=== PATIENT | male | born 1995 | race Hispanic/Latino ===

== ENCOUNTER 2016-07-22 07:43 | Emergency (ER) | payer OTHER ==
[~2016-07-22] VITALS: Ht 162.6 cm; Wt 70.8 kg
--- NOTE | 2016-07-22 08:08 | ED GI/GU/ABDOMINAL COMPLAINT ---
History of Present Illness General Chief Complaint: Abdominal Pain/Flank Pain Stated Complaint: ABD PAIN X 1 WEEK Source: patient, family (MOTHER) Exam Limitations: no limitations Vital Signs & Intake/Output Vital Signs & Intake/Output Vital Signs Date Time Temp Pulse Resp B/P B/P Pulse O2 O2 Flow FiO2 Mean Ox Delivery Rate 07/22 0746 96.5 54 18 112/70 99 Room Air Allergies Coded Allergies: No Known Allergies (07/22/16) Reconcile Medications No Known Home Medications Triage Note: PT TO ED WITH MOM FOR UPPER ABD PAIN SINCE LAST SUNDAY. SHARP IN NATURE. PT UNSURE OF LAST BM. DENIES URINARY SYMPTOMS. DENIES N/V/D. Triage Nurses Notes Reviewed? yes HPI: Patient presents for evaluation of a severe epigastric abdominal pain that began abruptly about 1 week ago. Patient states he episodes have been intermittent but don't change with eating. He denies any prior episodes of this type of pain. He denies any associated fever, cold symptoms, vomiting or diarrhea but felt nauseous today. He feels that the pain increased in intensity today prompting him to come to the emergency department. Patient denies any drug or alcohol use. Family history of gallbladder disease. Past History Travel History Traveled to [place] past 21 day No Medical History Any Pertinent Medical History? see below for history Neurological: NONE EENT: NONE Cardiovascular: NONE Respiratory: NONE Gastrointestinal: NONE Hepatic: NONE Renal: NONE Musculoskeletal: NONE Psychiatric: NONE Endocrine: NONE Blood Disorders: NONE Cancer(s): NONE BILINGUAL INTERPRETER/Reproductive: NONE Surgical History Surgical History: non-contributory Psychosocial History What is your primary language Tuvaluan Tobacco Use: Quit >30 days ago ETOH Use: denies use Illicit Drug Use: denies illicit drug use Family History Hx Contributory? No Review of Systems Review of Systems Constitutional: Reports: no symptoms. EENTM: Reports: no symptoms. Respiratory: Reports: no symptoms. Cardiovascular: Reports: no symptoms. GI: Reports: see HPI. Genitourinary: Reports: no symptoms. Musculoskeletal: Reports: no symptoms. Skin: Reports: no symptoms. Neurological/Psychological: Reports: no symptoms. Hematologic/Endocrine: Reports: no symptoms. Immunologic/Allergic: Reports: no symptoms. All Other Systems: Reviewed and Negative Physical Exam Physical Exam Gastrointestinal: SEE BELOW Comments: Gen.: Well-nourished, well-developed, no acute respiratory distress. Head: Normocephalic, atraumatic. Eyes: Normal inspection bilaterally Ears: Normal inspection bilaterally Nose: Normal inspection Throat/mouth : Moist mucosa Neck: Supple, full range of motion, no goiter Heart: Regular rate and rhythm, no murmurs rubs or gallops Lungs: Clear to auscultation bilaterally with normal air entry Chest: Nontender Back: Normal range of motion Abdomen: Soft, epigastric tenderness with brief voluntary guarding but no rebound, nondistended, normal bowel sounds Extremities: Normal range of motion grossly, equal radial pulses, no cyanosis clubbing or edema Neurologic: Cranial nerves grossly intact, speech is clear Skin: warm and dry Psychiatric: Calm, cooperative, no apparent delusions or hallucinations Core Measures ACS in differential dx? No Severe Sepsis Present: No Septic Shock Present: No Progress Differential Diagnosis: gastritis, pancreatitis, peptic ulcer, PUD/GERD Plan of Care: Orders Procedure Date/time Status URINALYSIS 07/23 807 Complete LIPASE 07/23 807 Complete COMPREHENSIVE METABOLIC PANEL 07/23 807 Complete CBC WITHOUT DIFFERENTIAL 07/23 807 Complete Laboratory Tests 07/22/16 0820: Urine Color YEL, Urine Clarity CLEAR, Urine pH 6.0, Ur Specific [place] 1.025, Urine Protein NEG, Urine Ketones NEG, Urine Nitrite NEG, Urine Bilirubin NEG, Urine Urobilinogen 0.2, Ur Leukocyte Esterase NEG, Ur Microscopic EXAM NOT REQUIRED, Urine Hemoglobin NEG, Urine Glucose NEG 07/22/16 0815: Anion Gap 10, Estimated GFR > 60, BUN/Creatinine Ratio 19.0, Glucose 101 H, Calcium 9.2, Total Bilirubin 0.5, AST 27, ALT 38, Alkaline Phosphatase 57, Total Protein 7.1, Albumin 4.1, Globulin 3.0, Albumin/Globulin Ratio 1.4, Lipase 88, CBC w Diff NO MAN DIFF REQ, RBC 5.05, MCV 82.5, MCH 27.3, RDW 13.4, MPV 8.0, Gran % 50.6, Lymphocytes % 38.0, Monocytes % 10.0 H, Eosinophils % 1.1, Basophils % 0.3, Absolute Granulocytes 2.3, Absolute Lymphocytes 1.8, Absolute Monocytes 0.5, Absolute Eosinophils 0.1, Absolute Basophils 0, PUBS MCHC 33.1 Initial ED EKG: none Comments: 07/22/2016 9:09:59 AM patient is feeling better and looks more comfortable clinically. Abdominal examination has improved. He feels ready to go home. Appendicitis-the patient did not have migration of the pain to the right lower quadrant, tenderness over McBurney's point, Rovsing sign, white cell blood count was not elevated, and the diagnostic imaging studies did not confirm this Peritonitis-the patient had no rebound or guarding, did not have a rigid abdomen , the white blood cell count was not elevated Cholecystitis-the patient had no Rubio's sign on exam, white blood cell count was normal, and there is no obstructive pattern on laboratory testing the patient's physical examination was inconsistent with this Pancreatitis-the lipase was normal, patient had no history of alcohol abuse or hypertriglyceridemia GI bleed-patient had no history of prior GI bleed, patient denied consistent use of NSAIDs, the patient is not taking anticoagulants such as Coumadin, the patient denied melena. AAA-the patient has a paucity of significant risk factors for vascular disease, there is no pulsatile abdominal mass, lower extremity pulses were equal Hernia-there were no apparent abdominal hernias on physical examination, the patient denied any unusual bulges or masses Ischemic bowel-the patient has a paucity of risk factors for vascular disease or thrombosis, physical examination did not reveal pain out of proportion to physical exam findings Bowel obstruction-patient's abdomen was not significantly distended or hypertympanitic, patient had good bowel sounds, patient was having bowel movements and passing flatus. Departure Departure Disposition: HOME OR SELF CARE Condition: Stable Clinical Impression Primary Impression: Epigastric abdominal pain Referrals: PATIENT HAS NO PRIMARY CARE DR (PCP/Family) LORENA SANABRIA MD Additional Instructions: Chaves diet (avoid acidic or spicy foods as discussed). Zantac as prescribed. Take Levsin as needed for abdominal pain. Follow-up with your primary care doctor or the GI specialist listed this week for reevaluation. Return if any concerns or sudden worsening. Thank you for choosing the [facility] for your care. It was a pleasure to serve you today. Nazario Taylor M.D. [facility] Departure Forms: Customer Survey General Discharge Information Prescriptions: Current Visit Scripts Ranitidine HCl (Zantac) 1 TAB PO QPM #15 TAB Hyoscyamine (Levsin) 1-2 TAB PO Q6P PRN ABDOMINAL CRAMPS #20 TAB
[2016-07-22 08:45] LABS: ABSOLUTE BASOPHIL COUNT 0 /CUMM (0.0-0.2); ABSOLUTE EOSINOPHIL COUNT 0.1 /CUMM (0.0-0.7); ABSOLUTE GRANULOCYTE CT 2.3 /CUMM (1.4-6.5); ABSOLUTE LYMPH COUNT 1.8 /CUMM (1.2-3.4); ABSOLUTE MONOCYTE COUNT 0.5 /CUMM (0.10-0.60); BASOPHIL % 0.3 % (0.0-2.0); EOSINOPHIL % 1.1 % (0-5); GRANULOCYTE % 50.6 % (42.2-75.2); HEMATOCRIT 41.7 % (42-52); MEAN CORPUSCULAR HGB 27.3 PG (27.0-31.0); MEAN CORPUSCULAR HGB CONC 33.1 G/DL (33.0-37.0); MEAN CORPUSCULAR VOLUME 82.5 FL (80.0-94.0); PLATELET COUNT 198 /CUMM (130-400); RBC DISTRIBUTION WIDTH 13.4 % (11.5-14.5); RED BLOOD CELL CT 5.05 /CUMM (4.70-6.10); WHITE BLOOD CELL COUNT 4.6 /CUMM (4.8-10.8)
[2016-07-22] MEDS ORDERED: ZANTAC300 MG PO (09:30)
[2016-07-22] MEDS ORDERED: LEVSIN0.125 M1 PO (09:30)
[2016-07-22 09:32] VITALS: BP 110/70
== END 2016-07-22 09:33 ==
LOC: ERH 07:43
PROVIDERS: Emergency Medicine
DX: R10.13 Epigastric pain (principal)
CPT/HCPCS: 81003